=== PATIENT | male | born 1980 | race Caucasian/White ===

== ENCOUNTER 2021-02-21 11:25 | Outpatient (CLI) | payer OTHER | END 2021-02-21 15:00 | disposition home or self-care (01) | LOC: LAB 11:25 | PROVIDERS: ATTEND Emergency Medicine Pediatric Emergency Medicine | DX: Z03.818 Encounter for observation for suspected exposure to other biological agents ruled out (principal) ==

== ENCOUNTER → 2021-03-05 09:23 | Outpatient (CLI) | payer OTHER | END | disposition home or self-care (01) | LOC: LAB 09:23 | PROVIDERS: ATTEND Emergency Medicine Pediatric Emergency Medicine | DX: Z03.818 Encounter for observation for suspected exposure to other biological agents ruled out (principal) ==

== ENCOUNTER 2021-06-08 08:00 | Outpatient (CLI) | payer OTHER | END 2021-06-08 08:30 | disposition home or self-care (01) | LOC: PPH VACUNA 08:00 | PROVIDERS: ATTEND Emergency Medicine Pediatric Emergency Medicine | DX: Z23 Encounter for immunization (principal) ==

== ENCOUNTER 2021-07-26 08:00 | Outpatient (CLI) | payer OTHER | END 2021-07-26 08:30 | disposition home or self-care (01) | LOC: PPH VACUNA 08:00 | PROVIDERS: ATTEND Emergency Medicine Pediatric Emergency Medicine | DX: Z23 Encounter for immunization (principal) ==

== ENCOUNTER 2021-10-31 15:43 | Outpatient (CLI) | payer OTHER | END 2021-10-31 15:54 | disposition home or self-care (01) | LOC: LAB 15:43 | PROVIDERS: ATTEND Surgery Surgery of the Hand | DX: M15.0 Primary generalized (osteo)arthritis (principal) ==

== ENCOUNTER 2021-11-24 01:32 | Emergency (ER) | payer OTHER ==
[~2021-11-24] VITALS: Ht 177.8 cm; Wt 104.3 kg
[2021-11-24] MEDS ORDERED: MOBIC7.5 MG (02:02)
[2021-11-24] MEDS ORDERED: NORFLEX100MG PO (06:11)
[2021-11-24] MEDS ORDERED: KETO10TA2 PO (06:11)
== END 2021-11-24 06:30 | disposition home or self-care (01) ==
LOC: ER 01:32
DX: S30.0XXA Contusion of lower back and pelvis, initial encounter (principal); S20.213A Contusion of bilateral front wall of thorax, initial encounter; V43.52XA Car driver injured in collision with other type car in traffic accident, initial encounter; Y93.89 Activity, other specified; Y92.413 State road as the place of occurrence of the external cause

== ENCOUNTER → 2021-11-25 | Emergency (ER) | payer OTHER ==
[~2021-11-25] VITALS: Ht 177.8 cm; Wt 104.3 kg
[~2021-11-25] MED LIST: KETO10TA2 PO; MOBIC7.5 MG; NORFLEX100MG PO
== END | disposition home or self-care (01) ==
LOC: ER 18:37
DX: S33.5XXA Sprain of ligaments of lumbar spine, initial encounter (principal); M54.50 Low back pain, unspecified; I10 Essential (primary) hypertension

== ENCOUNTER 2022-04-02 08:00 | Outpatient (CLI) | payer OTHER | END 2022-04-02 08:05 | disposition home or self-care (01) | LOC: PPH VACUNA 08:00 | PROVIDERS: ATTEND Emergency Medicine Pediatric Emergency Medicine | DX: Z23 Encounter for immunization (principal) ==

== ENCOUNTER → 2022-09-05 08:47 | Outpatient (CLI) | payer OTHER | END | disposition home or self-care (01) | LOC: LAB 08:47 | PROVIDERS: ATTEND Anesthesiology | DX: D64.9 Anemia, unspecified (principal); R51.9 Headache, unspecified; I10 Essential (primary) hypertension ==

== ENCOUNTER 2022-12-03 14:03 | Outpatient (CLI) | payer OTHER | END 2022-12-03 15:17 | disposition home or self-care (01) | LOC: LAB 14:03 | PROVIDERS: ATTEND Internal Medicine Geriatric Medicine | DX: E78.2 Mixed hyperlipidemia (principal); D50.9 Iron deficiency anemia, unspecified; E03.9 Hypothyroidism, unspecified; I11.9 Hypertensive heart disease without heart failure; E56.8 Deficiency of other vitamins; N39.0 Urinary tract infection, site not specified; Z12.11 Encounter for screening for malignant neoplasm of colon; R19.5 Other fecal abnormalities ==

== ENCOUNTER 2023-01-08 07:43 | Outpatient (CLI) | payer OTHER | END 2023-01-08 07:44 | disposition home or self-care (01) | LOC: NUCLEAR 07:43 | PROVIDERS: ATTEND Internal Medicine Geriatric Medicine | DX: I11.9 Hypertensive heart disease without heart failure (principal) ==

== ENCOUNTER 2023-01-13 13:10 | Emergency (ER) | payer OTHER ==
[~2023-01-13] VITALS: Ht 175.3 cm; Wt 99.8 kg
[2023-01-13] MEDS ORDERED: COZAAR25 MG PO (13:53)
== END 2023-01-13 18:50 | disposition home or self-care (01) ==
LOC: ER 13:10
DX: J11.1 Influenza due to unidentified influenza virus with other respiratory manifestations (principal); R53.81 Other malaise; Z20.822 Contact with and (suspected) exposure to COVID-19; I10 Essential (primary) hypertension

== ENCOUNTER 2023-02-19 14:23 | Outpatient (CLI) | payer OTHER ==
[~2023-02-19 14:23] MED LIST changes: +COZAAR25 MG PO
== END 2023-02-19 14:27 | disposition home or self-care (01) ==
LOC: RAD 14:23
PROVIDERS: ATTEND Internal Medicine Geriatric Medicine
DX: I11.9 Hypertensive heart disease without heart failure (principal); R06.02 Shortness of breath

== ENCOUNTER 2023-02-20 07:38 | Outpatient (CLI) | payer OTHER | END 2023-02-20 07:40 | disposition home or self-care (01) | LOC: LAB 07:38 | PROVIDERS: ATTEND Internal Medicine Geriatric Medicine | DX: D50.9 Iron deficiency anemia, unspecified (principal); E03.9 Hypothyroidism, unspecified; E78.2 Mixed hyperlipidemia; I11.9 Hypertensive heart disease without heart failure; E56.8 Deficiency of other vitamins; N39.0 Urinary tract infection, site not specified; Z12.11 Encounter for screening for malignant neoplasm of colon; R19.5 Other fecal abnormalities; E55.9 Vitamin D deficiency, unspecified; N19 Unspecified kidney failure; E11.9 Type 2 diabetes mellitus without complications; R80.9 Proteinuria, unspecified; C18.9 Malignant neoplasm of colon, unspecified; K92.1 Melena; Z12.5 Encounter for screening for malignant neoplasm of prostate ==

== ENCOUNTER 2023-03-04 10:15 | Inpatient (IN) | payer OTHER ==
[~2023-03-04] VITALS: Ht 177.8 cm; Wt 95.3 kg
[2023-03-13] MEDS ORDERED: NIFEDIPINE ER60 MG PO (13:06)
[2023-03-13] MEDS ORDERED: HYDRALAZINE HCL50 MG PO (13:06)
[2023-03-13] MEDS ORDERED: INTESTINEX680 M1 PO (13:06)
[2023-03-13] MEDS ORDERED: MELATONIN10 M2 PO (13:06)
[2023-03-13] MEDS ORDERED: LINEZOLID600 MG PO (13:06)
[2023-03-13] MEDS ORDERED: DOXAZOSIN MESYLA2 MG PO (13:06)
[2023-03-13] MEDS ORDERED: FAMOTIDINE20 MG PO (13:06)
[2023-03-13] MEDS ORDERED: NEURONTIN600 MG PO (13:06)
== END 2023-03-13 15:45 | disposition home or self-care (01) | DRG 682 ==
LOC: ER 10:15 → MEDI 14:09 → SEC-K 14:09 → MEDI 15:04
PROVIDERS: ADMIT Internal Medicine Geriatric Medicine; ATTEND Internal Medicine Geriatric Medicine
PROC: CW1NLZZ Planar Nuclear Medicine Imaging of Whole Body using Gallium 67 (Ga-67) (ICD-10-PCS; principal; 2023-03-04)
PROC: B24BZZZ Ultrasonography of Heart with Aorta (ICD-10-PCS; 2023-03-06)
PROC: BW24ZZZ Computerized Tomography (CT Scan) of Chest and Abdomen (ICD-10-PCS; 2023-03-06)
PROC: 02HV33Z Insertion of Infusion Device into Superior Vena Cava, Percutaneous Approach (ICD-10-PCS; 2023-03-07)
PROC: BW38ZZZ Magnetic Resonance Imaging (MRI) of Head (ICD-10-PCS; 2023-03-12)
DX: N17.9 Acute kidney failure, unspecified (principal); J18.9 Pneumonia, unspecified organism; G47.33 Obstructive sleep apnea (adult) (pediatric); E86.0 Dehydration; N18.9 Chronic kidney disease, unspecified; I12.9 Hypertensive chronic kidney disease with stage 1 through stage 4 chronic kidney disease, or unspecified chronic kidney disease
CPT/HCPCS: 70544

== ENCOUNTER 2023-03-18 08:30 | Outpatient (CLI) | payer OTHER ==
[~2023-03-18 08:30] MED LIST changes: +DOXAZOSIN MESYLA2 MG PO; +FAMOTIDINE20 MG PO; +HYDRALAZINE HCL50 MG PO; +INTESTINEX680 M1 PO; +LINEZOLID600 MG PO; +MELATONIN10 M2 PO; +NEURONTIN600 MG PO; +NIFEDIPINE ER60 MG PO
== END 2023-03-18 08:32 | disposition home or self-care (01) ==
LOC: LAB 08:30
DX: N19 Unspecified kidney failure (principal)

== ENCOUNTER → 2023-04-10 06:05 | Outpatient (CLI) | payer OTHER | END | disposition home or self-care (01) | LOC: LAB 06:05 | PROVIDERS: ATTEND Internal Medicine Geriatric Medicine | DX: D50.9 Iron deficiency anemia, unspecified (principal); E03.9 Hypothyroidism, unspecified; E78.2 Mixed hyperlipidemia; I11.9 Hypertensive heart disease without heart failure; E56.8 Deficiency of other vitamins; N39.0 Urinary tract infection, site not specified; Z12.11 Encounter for screening for malignant neoplasm of colon; R19.5 Other fecal abnormalities; E55.9 Vitamin D deficiency, unspecified; N19 Unspecified kidney failure; E11.9 Type 2 diabetes mellitus without complications ==

== ENCOUNTER → 2023-07-15 07:31 | Outpatient (CLI) | payer OTHER ==
[2023-07-15 08:23] LABS: PH,URINE 5.5 (5.0-8.0); URINE APPEARANCE Clear; URINE BILIRRUBIN Negative (NEGATIVE); URINE BLOOD Negative; URINE COLOR Yellow; URINE GLUCOSE Negative (NEGATIVE); URINE LEUKOCYTE Negative; URINE NITRATE Negative; URINE PROTEIN Negative (NEGATIVE); URINE UROBILINOGEN 0.2 E.U./dl
[2023-07-15 08:29] LABS: HEMATOCRIT 40.5 % (39.0-48.0); HEMOGLOBIN 14.1 g/dL (13-16.00); MEAN CELL VOLUME 89.9 fL (80.0-100.00); MEAN CORPUSCULAR HEMOGLOBIN 31.3 pg (27.00-32.0); MEAN CORPUSCULAR HGB CONC 34.8 g/dl (32.0-36.0); PLATELET COUNT 195 K/uL (150-450); RED BLOOD COUNT 4.51 M/uL (4.00-6.00)
[2023-07-15 08:48] LABS: URINE BACTERIA 2.5 uL (0.0-1933); URINE EPITHELIAL CELLS 0.4 uL (0.0-38.8); URINE WBC 1.5 uL (0.0-23.2)
[2023-07-15 09:14] LABS: ALBUMIN 4.1 gm/dL (3.4-5.0); BILIRUBIN TOTAL 0.39 mg/dL (0.3-1.2); CALCIUM 9.1 mg/dL (8.5-10.1); CHOL HDL RATIO 3.2 (0-5.0); CREATININE SERUM 0.96 mg/dL (0.70-1.30); GFR 85.9; GLOBULINA 3.4 G/DL (2.4-3.5); POTASSIUM 3.93 mEq/L (3.5-5.1); TOTAL PROTEIN 7.5 gm/dL (6.4-8.2); TSH 2.17 uIU/mL (0.358-3.74)
[2023-07-15 12:04] LABS: ob NEGATIVE (NEGATIVE)
== END | disposition home or self-care (01) ==
LOC: LAB 07:31
PROVIDERS: ATTEND Internal Medicine Geriatric Medicine
DX: D50.9 Iron deficiency anemia, unspecified (principal); E03.9 Hypothyroidism, unspecified; E78.2 Mixed hyperlipidemia; I11.9 Hypertensive heart disease without heart failure; E56.8 Deficiency of other vitamins; N39.0 Urinary tract infection, site not specified; Z12.11 Encounter for screening for malignant neoplasm of colon; R19.5 Other fecal abnormalities; N19 Unspecified kidney failure; E11.9 Type 2 diabetes mellitus without complications

== ENCOUNTER 2023-10-11 07:28 | Outpatient (CLI) | payer OTHER ==
[2023-10-11 08:38] LABS: URINE APPEARANCE Clear; URINE BILIRRUBIN Negative (NEGATIVE); URINE BLOOD Negative; URINE COLOR Yellow; URINE GLUCOSE Negative (NEGATIVE); URINE LEUKOCYTE Negative; URINE NITRATE Negative; URINE PROTEIN Negative (NEGATIVE); URINE UROBILINOGEN 0.2 E.U./dl
[2023-10-11 08:40] LABS: URINE EPITHELIAL CELLS 1.9 uL (0.0-38.8); URINE WBC 3.5 uL (0.0-23.2)
[2023-10-11 09:33] LABS: URINE RBC 0.8 uL (0.0-20.8)
== END 2023-10-11 07:29 | disposition home or self-care (01) ==
LOC: LAB 07:28
DX: R97.20 Elevated prostate specific antigen [PSA] (principal); R31.1 Benign essential microscopic hematuria

== ENCOUNTER → 2024-06-09 | Emergency (ER) | payer OTHER ==
[~2024-06-09] VITALS: Ht 177.8 cm; Wt 100.7 kg
[~2024-06-09] MED LIST changes: +AZITHROMYCIN 500 MG TABLET PO ONE; +DEXAMETHASONE SODIUM PHOSPHATE 4 MG/ML VIAL IM ONE; +GUAIFENESIN/DEXTROMETHORPHAN 10ML BLIST.PACK PO ONE; +TUSNEL LIQUID178 ML PO; +XOPENEX CO1.25 MG/0. IH; +ZITHROMAX500 MG PO; +ZYRTEC10 M3 PO
[2024-06-09 07:55] VITALS: BP 143/86; O2SAT 97
[2024-06-09 09:35] LABS: HEMATOCRIT 43.5 % (39.0-48.0); HEMOGLOBIN 14.7 g/dL (13-16.00); MEAN CELL VOLUME 91.6 fL (80.0-100.00); MEAN CORPUSCULAR HEMOGLOBIN 30.9 pg (27.00-32.0); MEAN CORPUSCULAR HGB CONC 33.8 g/dl (32.0-36.0); PLATELET COUNT 170 K/uL (150-450); RED BLOOD COUNT 4.75 M/uL (4.00-6.00); RED CELL DISTRIBUTION WIDTH 12.6 % (11.5-14.5)
== END | disposition home or self-care (01) ==
LOC: ER 07:40
PROVIDERS: General Practice
DX: B34.9 Viral infection, unspecified (principal); R53.81 Other malaise; Z20.822 Contact with and (suspected) exposure to COVID-19

== ENCOUNTER → 2025-02-10 13:29 | Outpatient (CLI) | payer OTHER ==
[~2025-02-10 13:29] MED LIST changes: -AZITHROMYCIN 500 MG TABLET PO ONE; -DEXAMETHASONE SODIUM PHOSPHATE 4 MG/ML VIAL IM ONE; -GUAIFENESIN/DEXTROMETHORPHAN 10ML BLIST.PACK PO ONE
== END | disposition home or self-care (01) ==
LOC: NUCLEAR 13:29
DX: I82.402 Acute embolism and thrombosis of unspecified deep veins of left lower extremity (principal)

== ENCOUNTER 2025-03-25 14:16 | Emergency (ER) | payer OTHER ==
[~2025-03-25] VITALS: Ht 175.3 cm; Wt 104.3 kg
[2025-03-25] MEDS ORDERED: CETIRIZINE HCL 5MG/5ML BLIST.PACK PO ONE (16:44)
[2025-03-25] MEDS ORDERED: GUAIFEN/DEXTROMETHORPHAN/PE 10 ML BLIST.PACK PO ONE (16:44)
[2025-03-25] MEDS ORDERED: GUAIFENESIN/DEXTROMETHORPHAN 100MG/10ML BLIST.PACK PO ONE (16:45)
[2025-03-25] MEDS ORDERED: CETIRIZINE HCL 5 MG/5 ML ML PO ONE (16:45)
[2025-03-25 17:04] LABS: BASO % 1.3 % (0.1-1.2); EOS # 0.05 (0.04-0.54); EOS % 1.1 % (0.7-7.0); LYMPH # 1.83 (1.18-3.74); LYMPH % 40.7 % (19.3-53.1); MEAN PLATELET VOLUME 10.80 fl (9.4-12.4); MONO # 0.57 (0.24-0.82); NEUT # 1.98 (1.56-6.13); NEUT % 44.0 % (34.0-71.1); RED CELL DISTRIBUTION WIDTH 11.8 % (11.6-14.4)
[2025-03-25 17:05] LABS: MONO % 12.7 % (4.7-12.5)
[2025-03-25 18:05] LABS: COVID-19 AG NEGATIVE (NEGATIVE)
[2025-03-25] MEDS ORDERED: ZITHROMAX500 MG PO (18:22)
[2025-03-25] MEDS ORDERED: ZYRTEC10 MG PO (18:22)
[2025-03-25] MEDS ORDERED: TUSSIN DM LIQU118 ML PO (18:22)
== END 2025-03-25 18:48 | disposition home or self-care (01) ==
LOC: ER 14:16
PROVIDERS: General Practice
DX: J00 Acute nasopharyngitis [common cold] (principal)

== ENCOUNTER 2025-07-07 14:00 | Outpatient (CLI) | payer OTHER ==
[~2025-07-07 14:00] MED LIST changes: +TUSSIN DM LIQU118 ML PO; +ZYRTEC10 MG PO
== END 2025-07-07 14:10 | disposition home or self-care (01) ==
LOC: PPH VACUNA 14:00
PROVIDERS: ATTEND Emergency Medicine Pediatric Emergency Medicine
DX: Z23 Encounter for immunization (principal)